=== PATIENT | female | born 1960 | race Caucasian/White ===

== ENCOUNTER 2016-09-24 05:07 | Day surgery (SDC) ==
[2016-09-24] MEDS ORDERED: NS 1,000 ML ONE (06:11)
[2016-09-24] MEDS ORDERED: MYLICON DROPS (DOSE) MISC ONE (07:15)
[2016-09-24 08:06] VITALS: BP 100/65
[2016-09-24] MEDS ORDERED: VERSED ONE (10:06)
[2016-09-24] MEDS ORDERED: DIPRIVAN 1% ONE (10:06)
[2016-09-24] MEDS ORDERED: FENTANYL ONE (10:09)
[2016-09-24] MEDS ORDERED: EXTENSION SET 32 IN 4522 ONE (10:27)
[2016-09-24] MEDS ORDERED: ANESTHESIA PB SET 88 IN 5742 ONE (10:27)
[2016-09-24] MEDS ORDERED: LR 1,000 ML ONE (10:27)
[2016-09-24] MEDS ORDERED: XYLOCAINE-MPF 2% ONE (10:28)
[2016-09-24] MEDS ORDERED: ROMAZICON (DOSE) ONE (10:28)
--- NOTE | 2016-09-24 14:21 | OPERATIVE NOTE ---
PROCEDURE DATE: 09/24/2016 HISTORY AND REASON FOR THE PROCEDURE: This patient has a family history of colon cancer. Her brother had colon cancer at the age of 65, and she needs a screening colonoscopy. Medications were all given by Anesthesiologist. Patient was monitored before, during, and after the procedure by them and her condition remains stable. Photos taken from the cecum and from the rectum. SPECIMEN: Polyp from the rectum. PROCEDURE: The patient was kept in the left decubitus position. Rectal examination was performed. The anal canal lubricated. The Olympus video scope was introduced in the rectum and advanced to the cecum. The patient tolerated the procedure well and bowel preparation was good. FINDINGS: The rectum had 1 polyp which was measuring about 0.4 cm in size. This was biopsied multiple times and removed. The sigmoid was normal. The descending colon was normal. Transverse colon and splenic flexure and hepatic flexure and ascending colon were all normal. Cecum was identified by the presence of ileocecal valve. There were no lesions present. Air was taken out from the patient's colon and scope was removed from the patient. IMPRESSION: One small polyp in the rectum, probably hyperplastic polyp. RECOMMENDATION: Await biopsy results. The patient to see me back in the office in 2 weeks. At that time, we will discuss the biopsy results. She should get another colonoscopy in 5 years.
== END 2016-09-24 08:10 | disposition home or self-care (01) ==
LOC: ENDO 05:07
PROVIDERS: ATTEND Internal Medicine Gastroenterology
DX: K62.1 Rectal polyp (principal); F17.210 Nicotine dependence, cigarettes, uncomplicated
CPT/HCPCS: 88305; 88313; J2250; J3010; J7030; J7120